=== PATIENT | male | born 1930 | race Caucasian/White ===

== ENCOUNTER 2017-01-04 18:33 | Inpatient (IN) | payer MEDICARE, OTHER ==
[~2017-01-04] VITALS: Ht 172.7 cm; Wt 129.7 kg
[~2017-01-04 18:33] MED LIST: AGGRENOX 25 MG-1 CER PO; DEMADEX 20MG20 M1 PO; EXTENDED PHENY300 MG PO; FLOMAX 0.40.4 MG/CAP PO; FLONASE ALLERG9.9 ML NAS; IPRATROPIUM BROM3 M1 IH; NEURONTIN100 M1 PO; PHENYTOIN SODI100 M1 PO; SIMVASTATIN10 M1 PO; TENORMIN25 MG PO; TYLENOL 500MG500 MG PO; VITAMIN C PURE500 M1 PO; ZINC SO4 PO
[2017-01-05 15:03] VITALS: BP 136/76
[2017-01-05 15:05] VITALS: BP 136/76
[2017-01-05] MEDS ORDERED: NABUMETONE500 MG PO (17:23)
[2017-01-05] MEDS ORDERED: TRANDOLAPRIL4 MG PO (17:24)
[2017-01-05] MEDS ORDERED: TYLENOL PM EXTR1 TA1 PO (17:25)
[2017-01-05 18:13] VITALS: BP 139/77
[2017-01-05 18:50] VITALS: BP 139/77
[2017-01-06 06:21] VITALS: BP 140/73
[2017-01-06 18:09] VITALS: BP 108/57
[2017-01-07 06:23] VITALS: BP 134/67
[2017-01-07 17:57] VITALS: BP 115/63
[2017-01-08 06:21] VITALS: BP 106/64
[2017-01-08 18:07] VITALS: BP 138/71
[2017-01-09 06:20] VITALS: BP 145/58
[2017-01-09 18:26] VITALS: BP 115/68
[2017-01-10 06:23] VITALS: BP 117/68
[2017-01-10 18:41] VITALS: BP 113/59
[2017-01-11 06:26] VITALS: BP 121/64
[2017-01-11 18:16] VITALS: BP 137/67
[2017-01-12 06:33] VITALS: BP 133/73
[2017-01-12 18:04] VITALS: BP 164/81
[2017-01-13 06:54] VITALS: BP 115/70
[2017-01-13 18:14] VITALS: BP 122/72
[2017-01-14 06:21] VITALS: BP 158/82
[2017-01-14] MEDS ORDERED: ELIQUIS5 MG PO (16:39)
[2017-01-14] MEDS ORDERED: NYSTATIN POWDER30 GM TP (16:41)
[2017-01-14 18:48] VITALS: BP 132/77
[2017-01-15 06:21] VITALS: BP 133/75
== END 2017-01-15 09:37 | disposition home health service (06) | DRG 176 ==
LOC: MED/SURG 18:33
PROVIDERS: ADMIT Physician Assistant
DX: I26.99 Other pulmonary embolism without acute cor pulmonale (principal); I13.0 Hypertensive heart and chronic kidney disease with heart failure and stage 1 through stage 4 chronic kidney disease, or unspecified chronic kidney disease; I50.22 Chronic systolic (congestive) heart failure; Z68.41 Body mass index [BMI] 40.0-44.9, adult; R53.81 Other malaise; I12.9 Hypertensive chronic kidney disease with stage 1 through stage 4 chronic kidney disease, or unspecified chronic kidney disease; N18.3 Chronic kidney disease, stage 3 (moderate); E66.01 Morbid (severe) obesity due to excess calories; G47.33 Obstructive sleep apnea (adult) (pediatric); Z86.73 Personal history of transient ischemic attack (TIA), and cerebral infarction without residual deficits; Z87.891 Personal history of nicotine dependence; Z79.01 Long term (current) use of anticoagulants
CPT/HCPCS: A6214

== ENCOUNTER 2017-01-30 13:06 | Inpatient (IN) | payer MEDICARE, OTHER ==
[~2017-01-30] VITALS: Ht 172.7 cm; Wt 129.2 kg
[~2017-01-30 13:06] MED LIST changes: +ELIQUIS5 MG PO; +NABUMETONE500 MG PO; +NYSTATIN POWDER30 GM TP; +TRANDOLAPRIL4 MG PO; +TYLENOL PM EXTR1 TA1 PO
[2017-01-30 15:54] VITALS: BP 121/54
[2017-01-30 18:37] VITALS: BP 106/64
[2017-01-31 06:28] VITALS: BP 108/70
[2017-01-31 18:30] VITALS: BP 110/55
[2017-02-01 06:27] VITALS: BP 86/58
[2017-02-01 18:01] VITALS: BP 120/70
[2017-02-02 06:21] VITALS: BP 109/66
[2017-02-02 18:14] VITALS: BP 113/57
[2017-02-03 06:19] VITALS: BP 118/76
[2017-02-03 18:05] VITALS: BP 123/70
[2017-02-04 06:36] VITALS: BP 105/63
[2017-02-04 18:19] VITALS: BP 114/61
[2017-02-05 06:33] VITALS: BP 103/60
[2017-02-05 18:32] VITALS: BP 128/63
[2017-02-06 06:22] VITALS: BP 113/65
[2017-02-06 18:34] VITALS: BP 125/63
[2017-02-07 06:39] VITALS: BP 123/69
[2017-02-07 18:09] VITALS: BP 108/61
[2017-02-08 06:30] VITALS: BP 116/63
[2017-02-08 18:33] VITALS: BP 115/66
[2017-02-09 06:36] VITALS: BP 122/62
[2017-02-09] MEDS ORDERED: CARVEDILOL3.125 MG PO (10:02)
[2017-02-09] MEDS ORDERED: DEMADEX 20MG20 M1 PO (10:03)
[2017-02-09] MEDS ORDERED: PEG 335017 GM/Dose PO (10:03)
[2017-02-09] MEDS ORDERED: FAMOTIDINE 20 MG PO (10:04)
[2017-02-09] MEDS ORDERED: OXYCODONE PO (10:05)
[2017-02-09] MEDS ORDERED: DEMADEX10 M1 PO (10:06)
== END 2017-02-09 10:43 | disposition home health service (06) | DRG 948 ==
LOC: MED/SURG 13:06
PROVIDERS: ADMIT Family Medicine
DX: R53.81 Other malaise (principal); I13.0 Hypertensive heart and chronic kidney disease with heart failure and stage 1 through stage 4 chronic kidney disease, or unspecified chronic kidney disease; I50.22 Chronic systolic (congestive) heart failure; Z68.41 Body mass index [BMI] 40.0-44.9, adult; I42.9 Cardiomyopathy, unspecified; G47.33 Obstructive sleep apnea (adult) (pediatric); M54.5 Low back pain; I13.10 Hypertensive heart and chronic kidney disease without heart failure, with stage 1 through stage 4 chronic kidney disease, or unspecified chronic kidney disease; N18.3 Chronic kidney disease, stage 3 (moderate); E66.01 Morbid (severe) obesity due to excess calories; I69.898 Other sequelae of other cerebrovascular disease; R56.9 Unspecified convulsions; M47.9 Spondylosis, unspecified; Z86.711 Personal history of pulmonary embolism; Z87.891 Personal history of nicotine dependence

== ENCOUNTER 2017-10-26 17:09 | Inpatient (IN) | payer MEDICARE, OTHER ==
[~2017-10-26] VITALS: Ht 172.7 cm; Wt 132.1 kg
[~2017-10-26 17:09] MED LIST changes: +CARVEDILOL3.125 MG PO; +DEMADEX10 M1 PO; +FAMOTIDINE 20 MG PO; +OXYCODONE PO; +PEG 335017 GM/Dose PO
[2017-10-28 14:25] VITALS: BP 130/78
[2017-10-28 14:51] LABS: EOS # 0.1 (0.04-0.40); EOS % 1.1 % (0.0-4.0); HEMATOCRIT 35.2 % (42.0-52.0); HEMOGLOBIN 11.4 g/dL (13.5-18.0); LYMPH# 1.2 (1.50-4.00); MEAN CELL VOLUME 103 fl (78-100); MEAN CORPUSCULAR HEMOGLOBIN 33 pg (27-31); MEAN CORPUSCULAR HGB CONC 32 g/dL (33-37); MEAN PLATELET VOLUME 10.2 fl (7.4-10.4); MONO # 0.5 (0.20-0.80); NEU # 3.6 (1.40-6.50); PLATELET COUNT 200 K/mm3 (130-400); RED BLOOD COUNT 3.43 M/mm3 (4.20-5.60); RED CELL DISTRIBUTION WIDTH 13.5 % (11.5-14.5); WHITE BLOOD COUNT 5.3 K/mm3 (4.8-10.8)
[2017-10-28 15:04] LABS: ALBUMIN 3.8 g/dL (3.5-5.0); BUN/CREATININE RATIO 35.8 (6.0-26.0); CALCIUM 8.8 mg/dL (8.4-10.2); POTASSIUM 4.1 mmol/L (3.6-5.0); TOTAL BILIRUBIN 0.3 mg/dL (0.2-1.3); TOTAL PROTEIN 7.7 g/dL (6.3-8.2)
[2017-10-28 20:43] VITALS: BP 113/63
[2017-10-29 06:32] LABS: URINE APPEARANCE CLOUDY; URINE BILIRUBIN NEGATIVE (NEGATIVE); URINE COLOR YELLOW; URINE GLUCOSE NEGATIVE (NEGATIVE); URINE KETONE NEGATIVE (NEGATIVE); URINE NITRATE NEGATIVE (NEGATIVE); URINE PROTEIN(semi-quant) TRACE mg/dL (NEGATIVE); URINE UROBILINOGEN NORMAL (NORMAL)
[2017-10-29 06:33] LABS: URINE BLOOD TRACE (NEGATIVE); URINE LEUKOCYTE ESTERASE 2+ (NEGATIVE); URINE MUCUS PRESENT (NOT PRESENT); URINE WBC >50 /hpf (0-3)
[2017-10-29 09:51] VITALS: BP 131/78
[2017-10-30 06:17] VITALS: BP 104/58
[2017-10-30 17:52] VITALS: BP 144/84
[2017-10-31 06:08] VITALS: BP 100/64
[2017-10-31 17:54] VITALS: BP 111/55
[2017-11-01 06:21] VITALS: BP 123/73
[2017-11-01 18:00] VITALS: BP 106/77
[2017-11-02 06:41] VITALS: BP 127/70
[2017-11-03 05:36] VITALS: BP 139/81
[2017-11-03 07:36] LABS: EOS # 0.3 (0.04-0.40); EOS % 4.2 % (0.0-4.0); HEMATOCRIT 38.2 % (42.0-52.0); HEMOGLOBIN 12.7 g/dL (13.5-18.0); LYMPH# 2.6 (1.50-4.00); MEAN CELL VOLUME 100 fl (78-100); MEAN CORPUSCULAR HEMOGLOBIN 33 pg (27-31); MEAN CORPUSCULAR HGB CONC 33 g/dL (33-37); MEAN PLATELET VOLUME 10.5 fl (7.4-10.4); MONO # 0.9 (0.20-0.80); NEU # 3.8 (1.40-6.50); PLATELET COUNT 235 K/mm3 (130-400); RED BLOOD COUNT 3.81 M/mm3 (4.20-5.60); RED CELL DISTRIBUTION WIDTH 13.2 % (11.5-14.5); WHITE BLOOD COUNT 7.6 K/mm3 (4.8-10.8)
[2017-11-03 07:46] LABS: ALBUMIN 4.1 g/dL (3.5-5.0); BUN/CREATININE RATIO 35.4 (6.0-26.0); CALCIUM 8.8 mg/dL (8.4-10.2); POTASSIUM 3.8 mmol/L (3.6-5.0); TOTAL BILIRUBIN 0.3 mg/dL (0.2-1.3)
[2017-11-03 17:44] VITALS: BP 122/72
[2017-11-04 06:39] VITALS: BP 126/79
[2017-11-04 18:26] VITALS: BP 117/62
[2017-11-05 06:23] VITALS: BP 122/69
[2017-11-05 18:06] VITALS: BP 133/68
[2017-11-06 06:01] VITALS: BP 127/75
[2017-11-06 18:12] VITALS: BP 121/74
[2017-11-07 06:14] VITALS: BP 130/74
[2017-11-07 18:00] VITALS: BP 119/75
[2017-11-08 06:25] VITALS: BP 126/77
[2017-11-08 17:49] VITALS: BP 137/79
[2017-11-09 06:04] VITALS: BP 149/77
[2017-11-09 18:00] VITALS: BP 126/70
[2017-11-10 06:14] VITALS: BP 139/71
[2017-11-10 18:00] VITALS: BP 115/61
[2017-11-11 06:01] VITALS: BP 133/72
[2017-11-11 07:03] LABS: HEMOGLOBIN 11.5 g/dL (13.5-18.0); MEAN CELL VOLUME 105 fl (78-100); MEAN CORPUSCULAR HEMOGLOBIN 34 pg (27-31); MEAN CORPUSCULAR HGB CONC 32 g/dL (33-37); MEAN PLATELET VOLUME 10.2 fl (7.4-10.4); PLATELET COUNT 197 K/mm3 (130-400); RED BLOOD COUNT 3.43 M/mm3 (4.20-5.60); RED CELL DISTRIBUTION WIDTH 13.6 % (11.5-14.5); WHITE BLOOD COUNT 7.1 K/mm3 (4.8-10.8)
[2017-11-11 07:25] LABS: ALBUMIN 3.5 g/dL (3.5-5.0); BUN/CREATININE RATIO 32.5 (6.0-26.0); CALCIUM 8.6 mg/dL (8.4-10.2); POTASSIUM 4.7 mmol/L (3.6-5.0); TOTAL BILIRUBIN 0.2 mg/dL (0.2-1.3)
[2017-11-11 07:43] LABS: LYMPHOCYTE 31 % (20-51); MONOCYTE 12 % (3-10); NEUTROPHILS 49 % (42-75)
[2017-11-11 18:19] VITALS: BP 120/65
[2017-11-12 06:49] VITALS: BP 127/79
[2017-11-12 18:05] VITALS: BP 134/78
[2017-11-13 06:43] VITALS: BP 132/77
[2017-11-13 18:10] VITALS: BP 125/72
[2017-11-14 05:41] VITALS: BP 115/65
[2017-11-14 18:10] VITALS: BP 111/68
[2017-11-15 06:07] VITALS: BP 126/77
[2017-11-15 18:24] VITALS: BP 147/71
[2017-11-16 06:02] VITALS: BP 144/84
[2017-11-16 18:05] VITALS: BP 119/70
[2017-11-17 05:46] VITALS: BP 118/80
[2017-11-17 18:22] VITALS: BP 113/76
[2017-11-18 06:03] VITALS: BP 122/63
[2017-11-18 10:51] LABS: HEMATOCRIT 35.2 % (42.0-52.0); HEMOGLOBIN 11.2 g/dL (13.5-18.0); MEAN CELL VOLUME 104 fl (78-100); MEAN CORPUSCULAR HEMOGLOBIN 33 pg (27-31); MEAN CORPUSCULAR HGB CONC 32 g/dL (33-37); MEAN PLATELET VOLUME 9.2 fl (7.4-10.4); PLATELET COUNT 196 K/mm3 (130-400); RED BLOOD COUNT 3.38 M/mm3 (4.20-5.60); RED CELL DISTRIBUTION WIDTH 13.9 % (11.5-14.5); WHITE BLOOD COUNT 6.3 K/mm3 (4.8-10.8)
[2017-11-18 11:04] LABS: ALBUMIN 3.6 g/dL (3.5-5.0); BUN/CREATININE RATIO 29.2 (6.0-26.0); CALCIUM 8.6 mg/dL (8.4-10.2); POTASSIUM 3.9 mmol/L (3.6-5.0); TOTAL BILIRUBIN 0.2 mg/dL (0.2-1.3); TOTAL PROTEIN 7.4 g/dL (6.3-8.2)
[2017-11-18 11:23] LABS: LYMPHOCYTE 34 % (20-51); MONOCYTE 7 % (3-10); NEUTROPHILS 45 % (42-75)
[2017-11-18 18:00] VITALS: BP 127/70
[2017-11-19 06:12] VITALS: BP 131/70
[2017-11-19 18:00] VITALS: BP 125/77
[2017-11-20 06:00] VITALS: BP 136/69
[2017-11-20 18:00] VITALS: BP 123/68
[2017-11-21 06:04] VITALS: BP 105/52
[2017-11-21 18:21] VITALS: BP 146/77
[2017-11-22 06:28] VITALS: BP 110/62
[2017-11-22] MEDS ORDERED: CITALOPRAM HBR10 MG PO (11:27)
[2017-11-22] MEDS ORDERED: ZESTRIL5 M1 PO (11:29)
[2017-11-22 18:00] VITALS: BP 147/81
[2017-11-23 05:47] VITALS: BP 124/63
[2017-11-23 18:44] VITALS: BP 118/61
[2017-11-24 06:05] VITALS: BP 144/73
[2017-11-24 09:48] LABS: HEMATOCRIT 36.5 % (42.0-52.0); HEMOGLOBIN 11.7 g/dL (13.5-18.0); MEAN CELL VOLUME 104 fl (78-100); MEAN CORPUSCULAR HEMOGLOBIN 33 pg (27-31); MEAN CORPUSCULAR HGB CONC 32 g/dL (33-37); MEAN PLATELET VOLUME 9.7 fl (7.4-10.4); PLATELET COUNT 208 K/mm3 (130-400); RED BLOOD COUNT 3.52 M/mm3 (4.20-5.60); RED CELL DISTRIBUTION WIDTH 13.8 % (11.5-14.5)
[2017-11-24 09:57] LABS: BUN/CREATININE RATIO 31.4 (6.0-26.0); CALCIUM 8.8 mg/dL (8.4-10.2); POTASSIUM 3.9 mmol/L (3.6-5.0)
[2017-11-24 10:17] LABS: LYMPHOCYTE 23 % (20-51); NEUTROPHILS 50 % (42-75)
[2017-11-24 10:18] LABS: MONOCYTE 8 % (3-10)
[2017-11-24 17:32] VITALS: BP 149/73
[2017-11-25 05:37] VITALS: BP 128/63
[2017-11-25 17:55] VITALS: BP 120/56
[2017-11-26 05:28] VITALS: BP 125/64
[2017-11-26 18:59] VITALS: BP 116/66
[2017-11-27 06:37] VITALS: BP 120/67
[2017-11-27 18:01] VITALS: BP 132/73
[2017-11-28 06:34] VITALS: BP 120/65
[2017-11-28 18:06] VITALS: BP 126/76
[2017-11-29 06:00] VITALS: BP 147/85
[2017-11-29 11:00] VITALS: BP 102/62
[2017-11-29 18:08] VITALS: BP 128/67
[2017-11-30 05:51] VITALS: BP 119/63
[2017-11-30 18:25] VITALS: BP 110/61
[2017-12-01 06:22] VITALS: BP 123/64; BP 174/92
[2017-12-01] MEDS ORDERED: ESCITALOPRAM20 MG PO (13:27)
[2017-12-01] MEDS ORDERED: CARBIDOPA/LEVODOPA PO (13:27)
[2017-12-01] MEDS ORDERED: DEMADEX 20MG20 M1 PO (13:28)
[2017-12-01] MEDS ORDERED: DESENEX2% TP (13:29)
[2017-12-01] MEDS ORDERED: LIDODERM PATCH TP (13:30)
[2017-12-01 13:42] VITALS: BP 123/64
== END 2017-12-01 14:37 | DRG 948 ==
LOC: MED/SURG 17:09
PROVIDERS: ADMIT Physician Assistant
DX: R53.81 Other malaise (principal); I13.0 Hypertensive heart and chronic kidney disease with heart failure and stage 1 through stage 4 chronic kidney disease, or unspecified chronic kidney disease; I50.22 Chronic systolic (congestive) heart failure; E44.1 Mild protein-calorie malnutrition; Z68.41 Body mass index [BMI] 40.0-44.9, adult; G20 Parkinson's disease; G62.9 Polyneuropathy, unspecified; J44.9 Chronic obstructive pulmonary disease, unspecified; N18.3 Chronic kidney disease, stage 3 (moderate); Z86.711 Personal history of pulmonary embolism; Z79.01 Long term (current) use of anticoagulants; I25.10 Atherosclerotic heart disease of native coronary artery without angina pectoris; Z85.46 Personal history of malignant neoplasm of prostate; E66.01 Morbid (severe) obesity due to excess calories; Z87.891 Personal history of nicotine dependence; F41.8 Other specified anxiety disorders; D47.2 Monoclonal gammopathy
CPT/HCPCS: J7512

== ENCOUNTER → 2017-12-24 | Outpatient (CLI) | payer MEDICARE, OTHER ==
[2017-12-01 13:42] VITALS: BP 123/64
[~2017-12-24] MED LIST changes: +CARBIDOPA/LEVODOPA PO; +CITALOPRAM HBR10 MG PO; +DESENEX2% TP; +ESCITALOPRAM20 MG PO; +LIDODERM PATCH TP; +ZESTRIL5 M1 PO
[2017-12-24 07:25] LABS: URINE APPEARANCE CLEAR; URINE BILIRUBIN NEGATIVE (NEGATIVE); URINE COLOR YELLOW; URINE GLUCOSE NEGATIVE (NEGATIVE); URINE KETONE NEGATIVE (NEGATIVE); URINE PROTEIN(semi-quant) TRACE mg/dL (NEGATIVE)
[2017-12-24 07:26] LABS: URINE BLOOD NEGATIVE (NEGATIVE); URINE LEUKOCYTE ESTERASE NEGATIVE (NEGATIVE); URINE MUCUS PRESENT (NOT PRESENT); URINE NITRATE NEGATIVE (NEGATIVE); URINE UROBILINOGEN NORMAL (NORMAL)
== END ==
LOC: LAB 05:00
PROVIDERS: Family Medicine
DX: Z09 Encounter for follow-up examination after completed treatment for conditions other than malignant neoplasm (principal)

== ENCOUNTER → 2017-12-28 | Outpatient (CLI) | payer MEDICARE, OTHER ==
[2017-12-01 13:42] VITALS: BP 123/64
== END ==
LOC: RAD 09:57
DX: M62.552 Muscle wasting and atrophy, not elsewhere classified, left thigh (principal); Z92.3 Personal history of irradiation

== ENCOUNTER → 2018-01-05 | Outpatient (CLI) | payer MEDICARE, OTHER ==
[2018-01-05 06:37] LABS: URINE APPEARANCE HAZY; URINE BILIRUBIN NEGATIVE (NEGATIVE); URINE BLOOD NEGATIVE (NEGATIVE); URINE COLOR YELLOW; URINE GLUCOSE NEGATIVE (NEGATIVE); URINE KETONE NEGATIVE (NEGATIVE); URINE LEUKOCYTE ESTERASE NEGATIVE (NEGATIVE); URINE MUCUS PRESENT (NOT PRESENT); URINE NITRATE NEGATIVE (NEGATIVE); URINE PROTEIN(semi-quant) NEGATIVE (NEGATIVE); URINE UROBILINOGEN NORMAL (NORMAL)
== END ==
LOC: LAB 05:50
PROVIDERS: Nurse Practitioner Family
DX: Z09 Encounter for follow-up examination after completed treatment for conditions other than malignant neoplasm (principal); Z87.440 Personal history of urinary (tract) infections; R41.82 Altered mental status, unspecified; R45.1 Restlessness and agitation

== ENCOUNTER → 2018-01-07 | Outpatient (CLI) | payer MEDICARE, OTHER | LOC: LAB 13:40 | DX: Z51.81 Encounter for therapeutic drug level monitoring (principal); Z79.899 Other long term (current) drug therapy ==

== ENCOUNTER → 2018-01-10 | Outpatient (CLI) | payer MEDICARE, OTHER ==
[2018-01-10 12:29] LABS: BUN/CREATININE RATIO 24.5 (6.0-26.0); POTASSIUM 3.6 mmol/L (3.6-5.0)
[2018-01-10 12:40] LABS: PHENYTOIN (DILANTIN) 23.3 ug/mL (10.0-20.0)
== END ==
LOC: LAB 11:48
PROVIDERS: Nurse Practitioner Family
DX: R79.89 Other specified abnormal findings of blood chemistry (principal); G40.909 Epilepsy, unspecified, not intractable, without status epilepticus

== ENCOUNTER → 2018-01-17 | Outpatient (CLI) | payer MEDICARE, OTHER ==
[~2018-01-17] MED LIST changes: +DILANTIN 100MG100 MG PO; +MACROBID 100 M100 MG PO; +SINEMET 25-1001 EACH PO; +TRAMADOL 50 MG TAB PO
[2018-01-17 13:07] LABS: BUN/CREATININE RATIO 21.3 (6.0-26.0); CALCIUM 8.4 mg/dL (8.4-10.2); PHENYTOIN (DILANTIN) 9.8 ug/mL (10.0-20.0); POTASSIUM 3.8 mmol/L (3.6-5.0)
== END ==
LOC: LAB 11:40
PROVIDERS: Nurse Practitioner Family
DX: G40.909 Epilepsy, unspecified, not intractable, without status epilepticus (principal)

== ENCOUNTER 2018-01-19 20:26 | Emergency (ER) | payer MEDICARE, OTHER ==
[~2018-01-19] VITALS: Wt 117.3 kg
[~2018-01-19 20:26] MED LIST changes: -DILANTIN 100MG100 MG PO; -MACROBID 100 M100 MG PO; -SINEMET 25-1001 EACH PO; -TRAMADOL 50 MG TAB PO
[2018-01-19] MEDS ORDERED: DILANTIN 100MG100 MG PO ×2 (21:01→21:02)
[2018-01-19] MEDS ORDERED: TRAMADOL 50 MG TAB PO (21:05)
[2018-01-19] MEDS ORDERED: SINEMET 25-1001 EACH PO (21:11)
[2018-01-19 21:22] LABS: EOS # 0.5 (0.04-0.40); HEMATOCRIT 39.2 % (42.0-52.0); HEMOGLOBIN 12.7 g/dL (13.5-18.0); LYMPH# 1.7 (1.50-4.00); MEAN CELL VOLUME 101 fl (78-100); MEAN CORPUSCULAR HEMOGLOBIN 33 pg (27-31); MEAN CORPUSCULAR HGB CONC 32 g/dL (33-37); MONO # 0.7 (0.20-0.80); NEU # 3.7 (1.40-6.50); PLATELET COUNT 198 K/mm3 (130-400); RED BLOOD COUNT 3.87 M/mm3 (4.20-5.60); WHITE BLOOD COUNT 6.6 K/mm3 (4.8-10.8)
[2018-01-19 21:23] LABS: EOS % 7.5 % (0.0-4.0)
[2018-01-19 21:42] LABS: ALBUMIN 3.3 g/dL (3.5-5.0); BUN/CREATININE RATIO 23.5 (6.0-26.0); CALCIUM 8.4 mg/dL (8.4-10.2); PHENYTOIN (DILANTIN) 12.2 ug/mL (10.0-20.0); POTASSIUM 3.5 mmol/L (3.6-5.0); TOTAL BILIRUBIN 0.3 mg/dL (0.2-1.3); TOTAL PROTEIN 6.6 g/dL (6.3-8.2)
[2018-01-19 21:44] LABS: ACETAMINOPHEN < 4 ug/mL (10-30)
[2018-01-19 21:45] LABS: ALCOHOL IN-HOUSE < 10 mg/dL
[2018-01-19 21:47] LABS: PH-URINE 6.5 (5.0 - 8.0); URINE APPEARANCE HAZY; URINE BILIRUBIN NEGATIVE (NEGATIVE); URINE BLOOD TRACE (NEGATIVE); URINE COLOR YELLOW; URINE GLUCOSE NEGATIVE (NEGATIVE); URINE KETONE NEGATIVE (NEGATIVE); URINE LEUKOCYTE ESTERASE 2+ (NEGATIVE); URINE NITRATE NEGATIVE (NEGATIVE); URINE PROTEIN(semi-quant) TRACE mg/dL (NEGATIVE); URINE UROBILINOGEN NORMAL (NORMAL)
[2018-01-19] MEDS ORDERED: MACROBID 100 M100 MG PO (22:47)
[2018-01-19 23:22] VITALS: BP 118/70
== END 2018-01-19 23:22 | disposition home or self-care (01) ==
LOC: ED 20:26
PROVIDERS: Physician Assistant
DX: F32.9 Major depressive disorder, single episode, unspecified (principal); F41.9 Anxiety disorder, unspecified; N39.0 Urinary tract infection, site not specified; G40.909 Epilepsy, unspecified, not intractable, without status epilepticus; G20 Parkinson's disease; M54.9 Dorsalgia, unspecified; Z86.73 Personal history of transient ischemic attack (TIA), and cerebral infarction without residual deficits; I12.9 Hypertensive chronic kidney disease with stage 1 through stage 4 chronic kidney disease, or unspecified chronic kidney disease; N18.9 Chronic kidney disease, unspecified; C61 Malignant neoplasm of prostate

== ENCOUNTER → 2018-02-02 | Outpatient (CLI) | payer MEDICARE, OTHER ==
[2018-01-19 23:22] VITALS: BP 118/70
[~2018-02-02] MED LIST changes: +DILANTIN 100MG100 MG PO; +MACROBID 100 M100 MG PO; +SINEMET 25-1001 EACH PO; +TRAMADOL 50 MG TAB PO
[2018-02-02 20:37] LABS: URINE APPEARANCE CLOUDY; URINE COLOR YELLOW
[2018-02-02 20:38] LABS: URINE PROTEIN(semi-quant) TRACE mg/dL (NEGATIVE)
[2018-02-02 20:39] LABS: URINE BILIRUBIN NEGATIVE (NEGATIVE); URINE BLOOD TRACE (NEGATIVE); URINE GLUCOSE NEGATIVE (NEGATIVE); URINE KETONE NEGATIVE (NEGATIVE); URINE LEUKOCYTE ESTERASE 2+ (NEGATIVE); URINE NITRATE POSITIVE (NEGATIVE); URINE UROBILINOGEN NORMAL (NORMAL)
== END ==
LOC: LAB 15:45
PROVIDERS: Family Medicine
DX: R30.0 Dysuria (principal)

== ENCOUNTER → 2018-02-16 | Outpatient (CLI) | payer MEDICARE, OTHER ==
[2018-01-19 23:22] VITALS: BP 118/70
== END ==
LOC: LAB 05:23
DX: Z51.81 Encounter for therapeutic drug level monitoring (principal); Z79.899 Other long term (current) drug therapy; G40.909 Epilepsy, unspecified, not intractable, without status epilepticus

== ENCOUNTER → 2018-03-16 | Outpatient (CLI) | payer MEDICARE, OTHER | LOC: LAB 09:40 | DX: G40.909 Epilepsy, unspecified, not intractable, without status epilepticus (principal); Z79.899 Other long term (current) drug therapy ==

== ENCOUNTER → 2018-05-05 | Outpatient (CLI) | payer MEDICARE, OTHER ==
[2018-05-05 06:48] LABS: URINE APPEARANCE CLOUDY; URINE COLOR YELLOW
[2018-05-05 06:49] LABS: URINE BILIRUBIN NEGATIVE (NEGATIVE); URINE BLOOD TRACE (NEGATIVE); URINE GLUCOSE NEGATIVE (NEGATIVE); URINE KETONE NEGATIVE (NEGATIVE); URINE LEUKOCYTE ESTERASE 1+ (NEGATIVE); URINE NITRATE NEGATIVE (NEGATIVE); URINE PROTEIN(semi-quant) TRACE mg/dL (NEGATIVE); URINE UROBILINOGEN NORMAL (NORMAL)
== END ==
LOC: LAB 05:35
PROVIDERS: Family Medicine
DX: R41.0 Disorientation, unspecified (principal)

== ENCOUNTER → 2018-07-08 | Outpatient (CLI) | payer MEDICARE, OTHER ==
[2018-07-08 18:08] LABS: URINE APPEARANCE HAZY; URINE BILIRUBIN NEGATIVE (NEGATIVE); URINE COLOR YELLOW; URINE GLUCOSE NEGATIVE (NEGATIVE); URINE KETONE NEGATIVE (NEGATIVE); URINE PROTEIN(semi-quant) TRACE mg/dL (NEGATIVE); URINE UROBILINOGEN NORMAL (NORMAL)
[2018-07-08 18:09] LABS: URINE BLOOD NEGATIVE (NEGATIVE); URINE LEUKOCYTE ESTERASE 1+ (NEGATIVE); URINE NITRATE NEGATIVE (NEGATIVE)
== END ==
LOC: LAB 16:48
PROVIDERS: Family Medicine
DX: N30.01 Acute cystitis with hematuria (principal); R41.0 Disorientation, unspecified

== ENCOUNTER → 2018-07-29 | Outpatient (CLI) | payer MEDICARE, OTHER ==
[2018-07-29 09:45] LABS: URINE APPEARANCE CLOUDY; URINE BILIRUBIN NEGATIVE (NEGATIVE); URINE BLOOD NEGATIVE (NEGATIVE); URINE COLOR YELLOW; URINE GLUCOSE NEGATIVE (NEGATIVE); URINE KETONE NEGATIVE (NEGATIVE); URINE LEUKOCYTE ESTERASE 2+ (NEGATIVE); URINE MUCUS PRESENT (NOT PRESENT); URINE NITRATE NEGATIVE (NEGATIVE); URINE PROTEIN(semi-quant) TRACE mg/dL (NEGATIVE); URINE UROBILINOGEN NORMAL (NORMAL); URINE WBC 31-50 /hpf (0-3)
== END ==
LOC: LAB 04:45
PROVIDERS: Internal Medicine
DX: N39.0 Urinary tract infection, site not specified (principal); N30.00 Acute cystitis without hematuria

== ENCOUNTER → 2018-09-29 | Outpatient (CLI) | payer MEDICARE, OTHER | LOC: LAB 07:25 | DX: G40.909 Epilepsy, unspecified, not intractable, without status epilepticus (principal) ==

== ENCOUNTER → 2019-05-04 | Outpatient (CLI) | payer MEDICARE, OTHER ==
[2018-12-21 07:07] VITALS: BP 126/79
[~2019-05-04] MED LIST changes: +ATIVAN IM; +COLACE100 M1 PO; +DULCOLAX S10 MG/SUPP RC; +FENTANYL1 EAC3 TD; +FLAGYL500 M1 PO; +LORAZEPAM0.5 M1 PO; +MIRALAX17 GM PO; +NEIGH PO; +ROCEPHIN 2 G2 G/VIAL IM; +TYLENOL EXTRA500 M2 PO; +ZOLOFT 50MG50 MG PO
== END ==
LOC: RAD 15:06
DX: J44.9 Chronic obstructive pulmonary disease, unspecified (principal); I50.9 Heart failure, unspecified

== ENCOUNTER → 2019-05-04 | Outpatient (CLI) | payer MEDICARE, OTHER ==
[2018-12-21 07:07] VITALS: BP 126/79
[2019-05-04 06:21] LABS: HEMATOCRIT 38.4 % (42.0-52.0); HEMOGLOBIN 11.8 g/dL (13.5-18.0); RED BLOOD COUNT 3.69 M/mm3 (4.20-5.60); WHITE BLOOD COUNT 8.5 K/mm3 (4.8-10.8)
[2019-05-04 06:24] LABS: ALBUMIN 3.1 g/dL (3.4-4.8); POTASSIUM 3.8 mmol/L (3.5-5.1)
[2019-05-04 06:26] LABS: CALCIUM 8.9 mg/dL (8.3-10.5)
[2019-05-04 06:27] LABS: TOTAL PROTEIN 7.4 g/dL (6.2-8.1)
[2019-05-04 06:29] LABS: TOTAL BILIRUBIN 0.2 mg/dL (0.2-1.2)
[2019-05-04 11:20] LABS: PH-URINE 5.5 (5.0 - 8.0); URINE APPEARANCE HAZY; URINE BILIRUBIN NEGATIVE (NEGATIVE); URINE BLOOD NEGATIVE (NEGATIVE); URINE COLOR YELLOW; URINE GLUCOSE NEGATIVE (NEGATIVE); URINE KETONE NEGATIVE (NEGATIVE); URINE LEUKOCYTE ESTERASE 2+ (NEGATIVE); URINE MUCUS PRESENT (NOT PRESENT); URINE NITRATE NEGATIVE (NEGATIVE); URINE PROTEIN(semi-quant) TRACE mg/dL (NEGATIVE); URINE UROBILINOGEN NORMAL (NORMAL); URINE WBC >50 /hpf (0-3)
== END ==
LOC: LAB 05:25
PROVIDERS: Family Medicine
DX: J44.9 Chronic obstructive pulmonary disease, unspecified (principal); I50.32 Chronic diastolic (congestive) heart failure; R41.0 Disorientation, unspecified

== ENCOUNTER → 2019-06-13 | Outpatient (CLI) | payer OTHER ==
[2018-12-21 07:07] VITALS: BP 126/79
[2019-06-13 06:59] LABS: URINE APPEARANCE CLOUDY; URINE BILIRUBIN NEGATIVE (NEGATIVE); URINE BLOOD TRACE (NEGATIVE); URINE COLOR YELLOW; URINE GLUCOSE NEGATIVE (NEGATIVE); URINE KETONE NEGATIVE (NEGATIVE); URINE LEUKOCYTE ESTERASE 2+ (NEGATIVE); URINE NITRATE NEGATIVE (NEGATIVE); URINE PROTEIN(semi-quant) 1+ mg/dL (NEGATIVE); URINE UROBILINOGEN NORMAL (NORMAL)
[2019-06-13 07:00] LABS: URINE WBC >50 /hpf (0-3)
== END ==
LOC: LAB 02:31
PROVIDERS: Family Medicine
DX: N18.3 Chronic kidney disease, stage 3 (moderate) (principal)

== ENCOUNTER → 2019-09-22 | Outpatient (CLI) | payer OTHER ==
[2018-12-21 07:07] VITALS: BP 126/79
[2019-09-22 10:32] LABS: URINE APPEARANCE CLOUDY; URINE BILIRUBIN NEGATIVE (NEGATIVE); URINE COLOR YELLOW; URINE GLUCOSE NEGATIVE (NEGATIVE); URINE KETONE NEGATIVE (NEGATIVE); URINE PROTEIN(semi-quant) 1+ mg/dL (NEGATIVE); URINE UROBILINOGEN NORMAL (NORMAL)
[2019-09-22 10:33] LABS: URINE BLOOD 250 ery/uL (NEGATIVE); URINE LEUKOCYTE ESTERASE 2+ (NEGATIVE); URINE NITRATE POSITIVE (NEGATIVE); URINE WBC >50 /hpf (0-3)
== END ==
LOC: LAB 06:30
PROVIDERS: Family Medicine
DX: R82.90 Unspecified abnormal findings in urine (principal)

== ENCOUNTER → 2019-10-23 | Outpatient (CLI) | payer OTHER ==
[2018-12-21 07:07] VITALS: BP 126/79
[2019-10-23 10:51] LABS: URINE APPEARANCE CLEAR; URINE BILIRUBIN NEGATIVE (NEGATIVE); URINE BLOOD NEGATIVE (NEGATIVE); URINE COLOR YELLOW; URINE GLUCOSE NEGATIVE (NEGATIVE); URINE KETONE NEGATIVE (NEGATIVE); URINE LEUKOCYTE ESTERASE NEGATIVE (NEGATIVE); URINE NITRATE NEGATIVE (NEGATIVE); URINE PROTEIN(semi-quant) NEGATIVE (NEGATIVE); URINE UROBILINOGEN NORMAL (NORMAL)
[2019-10-23 10:52] LABS: URINE MUCUS PRESENT (NOT PRESENT)
== END ==
LOC: LAB 10:27
PROVIDERS: Family Medicine
DX: N99.89 Other postprocedural complications and disorders of genitourinary system (principal)

== ENCOUNTER → 2019-12-03 | Outpatient (CLI) | payer OTHER ==
[2018-12-21 07:07] VITALS: BP 126/79
[2019-12-03 10:40] LABS: URINE APPEARANCE CLOUDY; URINE BILIRUBIN NEGATIVE (NEGATIVE); URINE BLOOD 250 ery/uL (NEGATIVE); URINE COLOR YELLOW; URINE GLUCOSE NEGATIVE (NEGATIVE); URINE KETONE NEGATIVE (NEGATIVE); URINE LEUKOCYTE ESTERASE 2+ (NEGATIVE); URINE MUCUS PRESENT (NOT PRESENT); URINE NITRATE POSITIVE (NEGATIVE); URINE PROTEIN(semi-quant) TRACE mg/dL (NEGATIVE); URINE UROBILINOGEN NORMAL (NORMAL); URINE WBC >50 /hpf (0-3)
== END ==
LOC: LAB
PROVIDERS: Family Medicine
DX: N39.0 Urinary tract infection, site not specified (principal)

== ENCOUNTER → 2020-05-09 | Outpatient (CLI) | payer MEDICARE, MEDICAID ==
[2018-12-21 07:07] VITALS: BP 126/79
[2020-05-09 09:28] LABS: HEMATOCRIT 40.5 % (42.0-52.0); HEMOGLOBIN 12.8 g/dL (13.5-18.0); MEAN CELL VOLUME 99 fl (78-100); MEAN CORPUSCULAR HEMOGLOBIN 31 pg (27-31); MEAN CORPUSCULAR HGB CONC 32 g/dL (33-37); PLATELET COUNT 147 K/mm3 (130-400); RED CELL DISTRIBUTION WIDTH 14.9 % (11.5-14.5); WHITE BLOOD COUNT 6.3 K/mm3 (4.8-10.8)
[2020-05-09 10:54] LABS: LYMPHOCYTE 32 % (20-51); MONOCYTE 6 % (3-10); NEUTROPHILS 48 % (42-75)
== END ==
LOC: LAB 08:52
PROVIDERS: Family Medicine
DX: F32.2 Major depressive disorder, single episode, severe without psychotic features (principal)